=== PATIENT | female | born 1940 | race Caucasian/White ===

== ENCOUNTER → 2016-08-08 | Outpatient (CLI) | payer MEDICARE, OTHER | END | disposition home or self-care (01) | LOC: GMAJ 14:33 | PROVIDERS: ATTEND Family Medicine | DX: R61 Generalized hyperhidrosis (principal) ==

== ENCOUNTER → 2017-01-23 | Outpatient (CLI) | payer MEDICARE, OTHER ==
--- NOTE | 2017-01-26 11:32 | MAM ---
EXAM DESCRIPTION: 3D Screening BILATERAL CLINICAL HISTORY: 76 yearsFemaleSCREENING. Right breast cancer with lumpectomy 2016. Currently taking HRT. COMPARISON: One needle localization right breast calcifications 03/03/2016. Digital diagnostic right breast examination 01/14/2016. Digital 2-D screening bilateral study 06/01/2015. Reports from prior examinations also reviewed. TECHNIQUE: Bilateral CC and MLO projection full-field images, 3-D tomosynthesis digital mammographic technique. Also bilateral synthesized CC/ MLO full-field images. CAD not utilized. FINDINGS: The breast parenchymal density pattern is: Scattered areas of fibroglandular density. No skin thickening or nipple retraction . Postbiopsy scarring in the lumpectomy site. Abnormal calcifications on the prior study are no longer visualized. Minimal skin changes. Biopsy localization marker not seen. Bilateral solitary microcalcifications. Group of coarse calcifications again noted in the central left breast and in the lower inner quadrant anteriorly. No focal, stellate mass or density, focal asymmetry , and no suspicious microcalcifications bilaterally. IMPRESSION: BI-RADS CATEGORY: 2 - BENIGN FINDINGS. FOLLOW UP: Routine digital bilateral screening, one year interval from December 2016. Written communication explaining the findings and follow-up, will be mailed to the patient and referring health care provider. According to the [employer], yearly mammograms are recommended starting at age 40 and continuing as long as a woman is in good health. Any breast change noted on a breast self-exam should be reported promptly to the patient's healthcare provider. Breast MRI is recommended for women with an approximately 20-25% or greater lifetime risk of breast cancer, including women with a strong family history of breast or ovarian cancer and women who have been treated for Hodgkin's disease. A negative mammographic report should not delay tissue diagnosis in patients with significant clinical history or physical findings. Extremely dense breast tissue limits the sensitivity of digital mammography. Electronically signed by: Piter Jeffries MD 01/26/2017 11:30 AM CDT Workstation: [id number]
== END ==
LOC: MAMMO 08:30
PROVIDERS: ATTEND Family Medicine
DX: Z12.31 Encounter for screening mammogram for malignant neoplasm of breast (principal)
CPT/HCPCS: G0202; G0279

== ENCOUNTER → 2017-02-15 | Outpatient (CLI) | payer MEDICARE, OTHER ==
--- NOTE | 2017-02-16 10:02 | US ---
THYROID ULTRASOUND Clinical information: other Thyroid nodule. Prior thyroid ultrasound: Yes, not available Previous right lobe thyroid resection. FINDINGS Size right lobe: Surgically absent Size left lobe: 4.3 cm craniocaudal, 1.9 cm transverse, 1.5 cm anterior-posterior Size isthmus: 0.4 cm anterior-posterior. Texture: Heterogeneous Estimated total number of nodules greater than or equal to 1 cm: 0 Number of spongiform nodules greater than or equal to 2 cm not described below (TR1): 0 Number of mixed cystic nodules greater than or equal to 1.5 cm not described below (TR2): 0 Nodule 1: Size: 1.0 x 0.5 x 0.6 cm Location: left mid Composition: mixed cystic and solid (1) Echogenicity: hypoechoic (2) Shape: not [id number] (0) Margins: smooth (0) Echogenic foci: punctate echogenic foci (3) ACR TI-RADS total points: 5. ACR TI-RADS risk category: TR4 There is an 8 x 5 x 5 mm well-circumscribed hypoechoic nodule in the upper pole of the left lobe without abnormal calcifications. There is a small 7 x 7 x 2 mm mostly cystic nodule in the region of the isthmus. IMPRESSION: Nodule 1: ACR TI-RADS 2017 4. Recommend: Follow-up ultrasound in 1 year There are surgical absence of the right lobe thyroid. Smaller nodule in the upper pole left lobe and cystic nodule in the isthmus is seen. ACR TI-RADS recommendations: TR5 (greater than or equal to 7 points) - FNA if greater than or equal to 1 cm, follow-up if 0.5 - 0.9 cm every year for 5 years TR4 (4-6 points) - FNA if greater than or equal to 1.5 cm, follow-up if 1 - 1.4 cm in 1, 2, 3 and 5 years TR3 (3 points) - FNA if greater than or equal to 2.5 cm, follow -up if 1.5 - 2.4 cm in 1, 3 and 5 years TR2 (2 points) and TR1 (0 points) - No FNA or follow-up * ACR TI-RADS recommends that no more than two nodules with the highest ACR TI-RADS total point should be biopsied and no more than four nodules should be followed. . Electronically signed by: Juan A Neff MD 02/16/2017 10:00 AM CDT
== END ==
LOC: US 10:05
PROVIDERS: ATTEND Family Medicine
DX: E04.1 Nontoxic single thyroid nodule (principal)

== ENCOUNTER → 2018-03-26 | Outpatient (CLI) | payer OTHER ==
--- NOTE | 2018-03-26 14:57 | MRI ---
EXAM DESCRIPTION: Brain w/o Contrast: MRI. CLINICAL HISTORY: DYSARTHRIA AND ANARTHRIA COMPARISON: CT scan of the head non-contrast 06/10/2013. TECHNIQUE: Multiplanar, high-field MRI unit, multiple diffusion sequences, multiple conventional sequences without contrast. FINDINGS: Minimally confluent hyperintense FLAIR and T2-weighted signal in the periventricular white matter and subcortical no-white matter junctions of the cerebral hemispheres. . No hemorrhage, no cerebral edema, no diffusion restriction. Normal signal in the bilateral basal ganglia, with perivascular spaces. Normal signal in the brainstem and cerebellar hemispheres. No hemorrhage, no cerebral edema, no mass-effect. No diffusion restriction. Concordance of the diffusion and non-diffusion sequences with no diffusion restriction. Cortical sulci, ventricles, and other CSF spaces, and the subdural spaces are physiologic for patient's age. No effacement or displacement. No midline shift. No extra-axial hemorrhage. Normal flow signal void in the major vessels of the [place], and the venous sinuses. IACs are symmetric bilaterally. Minimal fluid in the inferior right mastoid air cells. No mass effect in the bilateral cerebellopontine angles. Pituitary gland occupies the base of the sella. Base of the cerebellar tonsils is at the level of the foramen magnum. Possible polyp or cyst in the right sphenoid air cell.. The bony calvarium is intact. IMPRESSION: 1. Bilateral confluent periventricular white matter abnormal signal which is symmetric bilaterally and most likely related to aging and cerebral microvascular disease. No significant subcortical white matter lesions. No hemorrhage, cerebral edema or diffusion restriction. Normal signal in the brainstem and cerebellar hemispheres. 2. Normal noncontrast MRI diffusion study with no evidence of acute or subacute infarction. 3. Possible polyp or cyst in the right sphenoid air cell. Small pituitary gland "empty sella". Minimal fluid in the distal optic nerve root sheaths abutting the globes. Electronically signed by: Piter Jeffries MD 03/26/2018 2:55 PM CDT
== END ==
LOC: MRI 09:06
PROVIDERS: ATTEND Family Medicine
DX: R47.1 Dysarthria and anarthria (principal)

== ENCOUNTER 2018-08-29 05:28 | Day surgery (SDC) | payer OTHER ==
[2018-08-29] MEDS ORDERED: PROPOFOL 200 MG/20 ML VIAL IV ONE (10:00)
[2018-08-29] MEDS ORDERED: LIDOCAINE 1% 10 ML VIAL INJ ONE (10:00)
[2018-08-29] MEDS ORDERED: LACTATED RINGERS 1,000 ML ONE (10:17)
--- NOTE | 2018-08-29 13:14 | OP ---
DATE OF PROCEDURE: 08/29/18 PREPROCEDURE DIAGNOSIS: 1. Colorectal cancer screening. POSTPROCEDURE DIAGNOSIS: 1. Colonic polyps. 2. Severe diverticulosis. 3. Large, non-bleeding internal hemorrhoids. PROCEDURE: 1. Colonoscopy. SURGEON: Haja Roque MD COMPLICATIONS: No immediate complications. SEDATION: The patient was sedated via IV propofol by the Anesthesia Department. CONSENT: Prior to the procedure, risks, benefits and alternatives to the therapy were discussed with the patient. The risks included bleeding, infection, perforation and . The patient agreed to the procedure and signed a consent. PREPROCEDURE ANESTHESIA ASSESSMENT: Mallampati class type 2, ASA grade assessment type 2. Throughout the procedure, the patient's blood pressure and additional vital signs were closely monitored. PROCEDURE: The patient was placed in the left lateral decubitus position and a rectal examination was performed. The rectal examination was within normal limits. The Olympus colonoscope was passed in the anus, rectum, traversing the colon to the level of the cecum as identified by the appendiceal orifice. The scope was retracted and the mucosa was visualized. The entirety of the exam was performed under direct visualization. Retroflexion was performed in the rectum. Preparation quality was good. The withdrawal time was greater than 6 minutes. The patient tolerated the procedure well. FINDINGS: 1. Moderate to severe diverticulosis was found in the sigmoid and descending colon. 2. Two flat polyps were found in the transverse and descending colon. The polyps measured 10 and 12 mm, respectively. A cold snare was utilized for resection and complete retrieval. 3. Large, non-bleeding internal hemorrhoids were found in retroflexion. RECOMMENDATION: 1. Return the patient home. 2. Resume previous diet favoring high-fiber food intake. 3. May start Citrucel 2 tablespoons a day. 4. Followup pathology results. 5. Repeat colonoscopy in no later than 3 years. 6. Findings were discussed with the patient and family members. 7. Return to referring physician's office. 8. Return to my office p.r.n. #[id number] MTDD
[2018-08-29 14:17] VITALS: BP 118/73; TEMP 97.3; O2SAT 94
== END 2018-08-29 13:00 | disposition home or self-care (01) ==
LOC: AMB 05:28
PROVIDERS: ATTEND Internal Medicine Gastroenterology
DX: Z12.11 Encounter for screening for malignant neoplasm of colon (principal); K63.5 Polyp of colon; K57.30 Diverticulosis of large intestine without perforation or abscess without bleeding; K64.8 Other hemorrhoids; J44.9 Chronic obstructive pulmonary disease, unspecified; E11.9 Type 2 diabetes mellitus without complications; F17.210 Nicotine dependence, cigarettes, uncomplicated; Z85.820 Personal history of malignant melanoma of skin; Z88.6 Allergy status to analgesic agent; Z88.5 Allergy status to narcotic agent; Z88.8 Allergy status to other drugs, medicaments and biological substances; Z79.84 Long term (current) use of oral hypoglycemic drugs; Z79.02 Long term (current) use of antithrombotics/antiplatelets; Z79.899 Other long term (current) drug therapy
CPT/HCPCS: 00812; 45385; 82948; J3490; J7120

== ENCOUNTER → 2019-08-08 | Outpatient (CLI) | payer OTHER ==
--- NOTE | 2019-08-08 14:54 | CT ---
EXAM DESCRIPTION: Chest w/Contrast CLINICAL HISTORY: 79 years Female, CHRONIC OBSTRUCTIVE PULMONARY DISEASE WITH ACUTE EXACERBATION TECHNIQUE: This exam was performed according to our departmental dose-optimization program, which includes automated exposure control, adjustment of the mA and/or kV according to patient size and/or use of iterative reconstruction technique. COMPARISON: 04/11/2016 FINDINGS: Right thyroid lobectomy. No axillary adenopathy. Atherosclerotic plaque in the normal caliber thoracic aorta and coronary artery and aortic valvular calcifications. Trace pericardial fluid. No evidence of acute process in the visualized upper abdomen. No mediastinal adenopathy. The main pulmonary artery is unremarkable. No pneumothorax. No pleural effusion. Redemonstrated preferential upper lobe paraseptal emphysema. No focal consolidation. No suspicious pulmonary nodule. No acute or suspicious osseous abnormality. Scattered degenerative changes present. IMPRESSION: No evidence of acute process in the chest. Similar preferential upper lobe emphysematous change. Electronically signed by: Cristian Jaeger MD 08/08/2019 2:52 PM [facility]
== END ==
LOC: CT 09:00
PROVIDERS: ATTEND Family Medicine
DX: J44.1 Chronic obstructive pulmonary disease with (acute) exacerbation (principal); J43.9 Emphysema, unspecified

== ENCOUNTER → 2019-08-13 | Outpatient (CLI) | payer OTHER ==
--- NOTE | 2019-08-15 14:27 | MAM ---
EXAM DESCRIPTION: 3D Screening BILATERAL : Digital Mammography. CLINICAL HISTORY: 79 years Female ANNUAL SCREENING . Personal history of breast cancer age 16. No family history breast cancer. Menarche age 14. Childbirth age 23. Menopause age 36. Currently on HRT. Lifetime risk of developing breast cancer (Tyrer-Cuzick model)(%): Not calculated due to personal history of breast cancer. COMPARISON: Bilateral screening digital breast tomosynthesis December 2016.. TECHNIQUE: Bilateral CC and MLO projection full-field images, digital tomosynthesis mammographic technique. Bilateral digital 2-D full-field MLO images. CAD available for 2-D images. FINDINGS: The breast parenchymal density pattern is: Scattered areas of fibroglandular density. No skin thickening or nipple retraction. Bilateral skin mole markers. Solitary microcalcifications. Stable group of coarse microcalcifications medial left breast. No new focal, stellate mass or density, focal asymmetry , and no suspicious microcalcifications bilaterally. Stable mammograms compared to prior study. IMPRESSION: Benign exam. BIRAD CATEGORY: 2 BENIGN FINDINGS. RECOMMENDATIONS: FOLLOW UP: Routine digital bilateral mammographic screening, one year interval from July 2019. Written communication explaining the IMPRESSION and follow-up, will be mailed to the patient and referring health care provider. According to the [employer], yearly mammograms are recommended starting at age 40 and continuing as long as a woman is in good health. Any breast change noted on a breast self-exam should be reported promptly to the patient's healthcare provider. Breast MRI is recommended for women with an approximately 20-25% or greater lifetime risk of breast cancer, including women with a strong family history of breast or ovarian cancer and women who have been treated for Hodgkin's disease. A negative mammographic report should not delay tissue diagnosis in patients with significant clinical history or physical findings. Extremely dense breast tissue limits the sensitivity of digital mammography. Electronically signed by: Piter Jeffries MD 08/15/2019 2:26 PM [employer]
== END ==
LOC: MAMMO 09:00
PROVIDERS: ATTEND Family Medicine
DX: Z12.31 Encounter for screening mammogram for malignant neoplasm of breast (principal)

== ENCOUNTER → 2020-04-13 | Outpatient (CLI) | payer OTHER | LOC: GMAJ 11:08 | PROVIDERS: ATTEND Family Medicine | DX: E11.9 Type 2 diabetes mellitus without complications (principal); E78.00 Pure hypercholesterolemia, unspecified ==

== ENCOUNTER → 2020-08-18 | Outpatient (CLI) | payer OTHER ==
--- NOTE | 2020-08-19 15:47 | MAM ---
EXAM DESCRIPTION: 3D Screening BILATERAL : Digital Mammography. CLINICAL HISTORY: 80 years Female screening additional history of breast cancer 2016. Lobectomy. No remote family history of breast cancer. Menarche age 13. Childbirth age 23. Menopause age 36. Currently on HRT. Bilateral breast biopsies.. Lifetime risk of developing breast cancer (Tyrer-Cuzick model)(%): Not calculated due to personal history of breast cancer. COMPARISON: Bilateral screening digital breast tomosynthesis July 2019 and December 2016. TECHNIQUE: Bilateral CC and MLO projection full-field images, digital tomosynthesis mammographic technique. Bilateral digital 2-D full-field MLO images. CAD available for 2-D images. FINDINGS: The breast parenchymal density pattern is: Scattered areas of fibroglandular density. Skin mole markers. Solitary microcalcifications. Vascular calcifications. Intramammary lymph nodes and other stable nodular densities. No skin thickening or nipple retraction No new focal, stellate mass or density, focal asymmetry , and no suspicious microcalcifications laterally. Stable mammograms compared to prior study. IMPRESSION: Benign exam. BIRAD CATEGORY: 2 BENIGN FINDINGS. RECOMMENDATIONS: FOLLOW UP: Routine digital bilateral mammographic screening, one year interval from July 2020. Written communication explaining the IMPRESSION and follow-up, will be mailed to the patient and referring health care provider. According to the [employer], yearly mammograms are recommended starting at age 40 and continuing as long as a woman is in good health. Any breast change noted on a breast self-exam should be reported promptly to the patient's healthcare provider. Breast MRI is recommended for women with an approximately 20-25% or greater lifetime risk of breast cancer, including women with a strong family history of breast or ovarian cancer and women who have been treated for Hodgkin's disease. A negative mammographic report should not delay tissue diagnosis in patients with significant clinical history or physical findings. Extremely dense breast tissue limits the sensitivity of digital mammography. Electronically signed by: Piter Jeffries MD 08/19/2020 3:46 PM [facility]
== END ==
LOC: MAMMO 08:50
PROVIDERS: ATTEND Family Medicine
DX: Z12.31 Encounter for screening mammogram for malignant neoplasm of breast (principal)